=== PATIENT | female | born 1975 | race Caucasian/White ===

== ENCOUNTER 2021-03-06 14:12 | Inpatient (IN) ==
[2021-03-06] MEDS ORDERED: SODIUM CHLORIDE 0.9% 1000ML 1,000 ML IV ONE (14:26)
[2021-03-06] MEDS ORDERED: methylPREDNISolone 125 MG/2 ML VIAL IV STA (14:26)
[2021-03-06] MEDS ORDERED: ALBUT/IPRATROP 3MG/0.5MG NEB 3 ML VIAL NEB STA ×3 (14:26→17:56)
--- NOTE | 2021-03-06 14:29 | Emergency Department Note ---
History of Present Illness General Chief Complaint: Respiratory Problems Stated Complaint: ASTHMA ATTACK Time Seen by Provider: 03/06/21 14:19 History of Present Illness Provider Complaint: shortness of breath and "asthma attack" Onset (ago): day(s) (3) Severity: moderate Consistency/Duration: + progressively worsening Maximum Pain Intensity: 5 Relieved By: + nothing Exacerbated By: + coughing Context: no recent illness, no choking/aspiration, no medication noncompliance, no smoke/fume exposure or no CO exposure Known history of: asthma Associated symptoms: + chest pain, + pain with inspiration, + cough and + wheezing; no fever, no hemoptysis, no nausea/vomiting, no abdominal pain or no chest congestion HPI Narrative: Patient states she has been taking her albuterol nebulizer every 2 hours and has been on 80 mg prednisone for last 3 days but does not help. Patient denies any history of intubation or ICU admission. Home Medications Medication Instructions Recorded Confirmed Type multivitamin 1 tab PO QAM 08/25/18 03/06/21 History omeprazole 40 mg capsule,delayed 40 mg PO QAM 08/25/18 03/06/21 History release dextromethorphan HBr 5 mg/5 mL 10 mg PO Q6H PRN 08/30/19 03/06/21 History oral syrup (Vicks DayQuil Cough) dextromethorphan polistirex 30 10 ml PO Q12H 08/30/19 03/06/21 History mg/5 mL oral susp ext.release 12hr (Delsym 12 hour) albuterol sulfate 0.63 mg/3 mL 0.63 mg INHALATION QID PRN #75 ml 04/26/20 03/06/21 Rx solution for nebulization albuterol sulfate 90 mcg/actuation 2 puff INHALATION Q6H PRN #18 g 04/26/20 03/06/21 Rx aerosol inhaler budesonide-formoterol HFA 160 2 inh INH Q12H #10.2 g 04/26/20 03/06/21 Rx mcg-4.5 mcg/actuation aerosol inhaler (Symbicort) famotidine 20 mg tablet 20 mg PO DAILY 04/26/20 03/06/21 History ipratropium 0.5 mg-albuterol 3 mg 3 ml INH QID PRN #90 ml 04/26/20 03/06/21 Rx (2.5 mg base)/3 mL nebulization soln valacyclovir 500 mg tablet 500 mg PO Q12 PRN tab 04/26/20 03/06/21 History montelukast 10 mg tablet 10 mg PO DAILY #30 tab 09/08/20 03/06/21 Rx (Singulair) ipratropium bromide 21 mcg (0.03 2 spray INTNAS DAILY ml 09/21/20 03/06/21 History %) nasal spray Lactobacil.acidophilus-Bifido.animalis 1 cap PO DAILY 03/06/21 03/06/21 History 5 billion cell sprinkle capsule (Probiotic) Theroplus 1 cap PO DAILY 03/06/21 03/06/21 History acetaminophen 325 mg capsule 650 mg PO Q6H PRN 03/06/21 03/06/21 History (Tylenol) amino acids (Amino Acid) 3 cap PO DAILY 03/06/21 03/06/21 History amoxicillin 875 mg-potassium 1 tab PO Q12 03/06/21 03/06/21 History clavulanate 125 mg tablet bupropion HCl 150 mg 24 hr tablet, 150 mg PO DAILY 03/06/21 03/06/21 History extended release cetirizine 10 mg tablet 10 mg PO DAILY 03/06/21 03/06/21 History cholecalciferol (vitamin D3) 50 50 mcg PO DAILY 03/06/21 03/06/21 History mcg (2,000 unit) tablet (Vitamin D3) guaifenesin 200 mg tablet 200 mg PO Q4H PRN 03/06/21 03/06/21 History ibuprofen 600 mg tablet 600 mg PO Q6H PRN 03/06/21 03/06/21 History prednisone 10 mg tablet See Rx Instructions PO DAILY #20 03/06/21 03/06/21 Rx tab Allergies Allergy/AdvReac Type Severity Reaction Status Date / Time alprazolam [From Xanax] AdvReac Intermediate Hallucinati Verified 03/06/21 15:57 ons oxycodone [From Percocet] AdvReac Intermediate Hallucinati Verified 03/06/21 15:57 ons Past Med/Surg History Medical History Abnormal uterine bleeding The R/Bof surgery were discussed with the Patient to include, but not limited to bleeding/transfusion, infection, wound breakdown/poor healing, damage to organs in abd/pelvis with possible need for further surgical repair, need for abdominal incision to complete the procedure, blood clot, PE, [place], and stroke. Additionally, risks/benefits of ovarian preservation were discussed to include 1/70 lifetime risk of ovarian cancer and 5-10% risk for need of future surgery for ovarian pathology. Patient understands these risks and consents previously signed for surgery. She desires ovarian preservation at this time. GERD (gastroesophageal reflux disease) History of COVID-19 Malignant hyperthermia Family history - Great Uncle Moderate persistent asthma Nonallergic rhinitis Surgical History History of colonoscopy History of dilatation and curettage WITH UTERINE THERMAL ABLATION History of esophagogastroduodenoscopy (EGD) [place] teeth extracted Family History Father Family history of diabetes mellitus Grandmother No problems noted. Grandfather No problems noted. Grandfather (Maternal) Family history of diabetes mellitus Grandfather (Paternal) Family history of diabetes mellitus Grandmother (Paternal) Family history of diabetes mellitus Grandmother (Maternal) Family history of diabetes mellitus Aunt Family history of diabetes mellitus Uncle Family history of diabetes mellitus Social History Smoking Status: Never smoker Second Hand Exposure: No; Hx Alcohol Use: Yes Hx Substance Use: No Preferred Language: Libyan Communication Ability: Effective Inspection And Testing Supervisor Required: No Beliefs That Will Affect Care: None Current Living Situation: Spouse Current Living Situation Comment: AND FATHER IN LAW Feels Safe at Home: Yes Assistive Devices: Glasses Review of Systems A total of 10 systems reviewed and were otherwise negative Physical Exam Vital Signs: Vital Signs - 24 hr 03/06/21 14:12 03/06/21 14:26 03/06/21 14:41 Temperature 35.7 C L Temperature Source Temporal Artery Sc an Pulse Rate 115 H Pulse Rate [Apical ] 124 H Pulse Rate [Right Finger] 112 H Pulse Rhythm Regular Pulse Rhythm [Apic al] Pulse Strength Normal Respiratory Rate 22 20 16 Respiratory Effort / Characteristics Non-Labored Non-Labored Sponta neous Respiratory Depth Normal Respiratory Patter n Regular Blood Pressure 156/90 H Blood Pressure [Ri ght Arm] 154/96 H Blood Pressure Christen n 112 Blood Pressure Christen n [Right Arm] 115 Blood Pressure Pos ition Sitting Pulse Oximetry 99 100 100 Oxygen Delivery Me thod Room Air Room Air Room Air Sepsis Recent Feve r Within 48 Hours No Sepsis New/Unexpla ined Change in Men megan Status N/A Sepsis Action Take n by Nursing No Action Required 03/06/21 16:12 03/06/21 17:30 03/06/21 18:00 Temperature Temperature Source Pulse Rate Pulse Rate [Apical ] 93 H 95 H Pulse Rate [Right Finger] 96 H Pulse Rhythm Pulse Rhythm [Apic al] Regular Pulse Strength Respiratory Rate 16 18 16 Respiratory Effort / Characteristics Non-Labored Spontaneous Non-Labored Respiratory Depth Normal Normal Respiratory Patter n Blood Pressure Blood Pressure [Ri ght Arm] 142/87 H 142/87 H Blood Pressure Christen n Blood Pressure Christen n [Right Arm] 105 105 Blood Pressure Pos ition Pulse Oximetry 99 100 100 Oxygen Delivery Me thod Room Air Room Air Room Air Sepsis Recent Feve r Within 48 Hours Sepsis New/Unexpla ined Change in Men megan Status Sepsis Action Take n by Nursing 03/06/21 18:08 Temperature Temperature Source Pulse Rate Pulse Rate [Apical ] Pulse Rate [Right Finger] 97 H Pulse Rhythm Pulse Rhythm [Apic al] Pulse Strength Respiratory Rate 19 Respiratory Effort / Characteristics Spontaneous Respiratory Depth Respiratory Patter n Blood Pressure Blood Pressure [Ri ght Arm] Blood Pressure Christen n Blood Pressure Christen n [Right Arm] Blood Pressure Pos ition Pulse Oximetry 99 Oxygen Delivery Me thod Room Air Sepsis Recent Feve r Within 48 Hours Sepsis New/Unexpla ined Change in Men megan Status Sepsis Action Take n by Nursing Physical Exam: Physical Exam GENERAL: She is oriented to person, place, and time. She appears well-developed and well-nourished. She does not appear distressed. HENT: Exam performed. -Head: Normocephalic and atraumatic. -Right Ear: External ear normal. No mastoid tenderness. -Left Ear: External ear normal. No mastoid tenderness. -Mouth/Throat: The oropharynx is clear and moist. No trismus in the jaw. No dental abscesses or uvula swelling. No oropharyngeal exudate or tonsillar abscesses. EYES: Conjunctivae and EOM are normal. Pupils are equal, round, and reactive to light. Right eye exhibits no discharge. Left eye exhibits no discharge. No scleral icterus. NECK: Normal range of motion. Neck supple. No JVD present. No spinous process tenderness present. No carotid bruit present. No rigidity. No tracheal deviation and normal range of motion present. No Brudzinski's sign and no Kernig's sign noted. CV: Tachycardic rate, regular rhythm, normal heart sounds and intact distal pulses. There is no peripheral edema. Palpable radial pulses bue. PULM/CHEST: Effort normal and breath sounds normal. No respiratory distress. No stridor. She has no wheezes. She has no rales. -Chest Wall: She exhibits no tenderness. ABD: The abdomen is soft. Bowel sounds are normal. She has no distension. No mass is present. There is no tenderness. There is no rebound, no guarding, no Pena's sign and no tenderness at McBurney's point. Rovsig negative MUSC/SKEL: Normal range of motion. There is no peripheral edema, tenderness or deformity. LYMPH: No cervical adenopathy. NEURO: She is alert and oriented to person, place, and time. She has normal strength. No cranial nerve deficit or sensory deficit. Coordination and gait normal. GCS eye subscore is 4. GCS verbal subscore is 5. GCS motor subscore is 6. Cerebellar tests wnl. SKIN: Skin is warm and dry. She is not diaphoretic. PSYCH: She has a normal mood and affect. Behavior is normal. Judgment and thought content normal. Course Course 1419: The patient was evaluated in room B6. A complete history and physical exam was performed Cardiac monitoring: An order was placed for continuous cardiac monitoring. The monitor shows a rate of 115 with sinus tachycardia rhythm 1715: Nursing called and states patient is requesting another DuoNeb. The DuoNeb ordered. 1800: Vital signs stable. Labs and imaging within normal limits with the ex ception of potassium 3.0, potassium replaced in the emergency department. D- dimer and troponin negative.. On reassessment the patient is wheezing bilaterally diffusely. Patient will be given another DuoNeb treatment and [facility] Administered Medications Discontinued Medications Albuterol (Albut/Ipratrop 3mg/0.5mg Neb 3 Ml Vial) 3 ml NEB NOW STA Stop: 03/06/21 14:27 Last Admin: 03/06/21 14:40 Dose: 3 ml Documented by: [id number] Albuterol (Albut/Ipratrop 3mg/0.5mg Neb 3 Ml Vial) 3 ml NEB NOW STA Stop: 03/06/21 17:22 Last Admin: 03/06/21 17:29 Dose: 3 ml Documented by: [id number] Albuterol (Albut/Ipratrop 3mg/0.5mg Neb 3 Ml Vial) 3 ml NEB NOW STA Stop: 03/06/21 17:57 Last Admin: 03/06/21 18:07 Dose: 3 ml Documented by: [id number] Sodium Chloride (Nss 1000ml) 1,000 mls @ 999 mls/hr IV .Q1H1M ONE Stop: 03/06/21 15:26 Last Infusion: 03/06/21 16:30 Dose: 0 mls/hr Documented by: [id number] Admin: 03/06/21 14:36 Dose: 999 mls/hr Documented by: [id number] Methylprednisolone (Methylprednisolone 125 Mg/2 Ml Vial) 125 mg IV NOW STA Stop: 03/06/21 14:27 Last Admin: 03/06/21 14:37 Dose: 125 mg Documented by: [id number] Potassium Chloride (Potassium Chloride 10 Meq Tabcr) 40 meq PO NOW STA Stop: 03/06/21 15:45 Last Admin: 03/06/21 16:10 Dose: 40 meq Documented by: [id number] Medical Decision Making Laboratory Data Result diagrams: 03/06/21 14:54 03/06/21 14:54 Lab Results 03/06/21 03/06/21 03/06/21 Range/Units 14:54 14:54 14:54 WBC 10.17 (4.8-10.8) K/uL RBC 4.11 L (4.2-5.4) M/uL Hgb 12.3 (12.0-16.0) g/dL Hct 36.1 L (37-47) % MCV 87.8 (80-100) fL MCH 29.9 (25-34) pg MCHC 34.1 (32-36) g/dL RDW Std Deviation 46.8 H (36.4-46.3) fL RDW Coeff of Karena 14.5 (11.5-14.5) % Plt Count 338 (130-400) K/uL MPV 9.8 (7.4-10.4) fL Immature Gran % (Auto) 0.3 % Neut % (Auto) 91.6 % Lymph % (Auto) 6.7 % [place] % (Auto) 1.2 % Eos % (Auto) 0.1 % Baso % (Auto) 0.1 % Neut # (Auto) 9.32 H (1.4-6.5) K/uL Lymph # (Auto) 0.68 L (1.2-3.4) K/uL [place] # (Auto) 0.12 (0.11-0.59) K/uL Eos # (Auto) 0.01 (0-0.5) K/uL Baso # (Auto) 0.01 (0-0.2) K/uL Immature Gran # (Auto) 0.03 H (0.00-0.02) K/uL PT 10.3 (9.0-12.0) Seconds INR 1.0 (0.9-1.1) APTT 22.5 (21.0-31.0) Seconds PTT Ratio 0.9 D-Dimer (0-500) ug/L FEU VBG pH (7.36-7.41) VBG pCO2 (38-50) mmHg VBG pO2 mmHg VBG HCO3 mmol/L VBG O2 Saturation % VBG Base Excess mEq/L Barometric Pressure mm/Hg Sodium (136-145) mmol/L Potassium (3.5-5.1) mmol/L Chloride (98-107) mmol/L Carbon Dioxide (21-32) mmol/L Anion Gap (3-11) BUN (7-18) mg/dl Creatinine (0.6-1.2) mg/dl Est Cr Clr Drug Dosing ml/min Est GFR ( Amer) ml/min Est GFR (Non-Af Amer) ml/min BUN/Creatinine Ratio (10-20) Glucose (70-99) mg/dl Calcium (8.5-10.1) mg/dl Magnesium (1.8-2.4) mg/dl Troponin I (0-0.045) ng/ml COVID-19 Eval Order SARS-CoV-2 (PCR) (Negative) SARS-CoV-2 IgG & IgM Ab Positive A (Negative) 03/06/21 03/06/21 03/06/21 Range/Units 14:54 14:54 14:54 WBC (4.8-10.8) K/uL RBC (4.2-5.4) M/uL Hgb (12.0-16.0) g/dL Hct (37-47) % MCV (80-100) fL MCH (25-34) pg MCHC (32-36) g/dL RDW Std Deviation (36.4-46.3) fL RDW Coeff of Karena (11.5-14.5) % Plt Count (130-400) K/uL MPV (7.4-10.4) fL Immature Gran % (Auto) % Neut % (Auto) % Lymph % (Auto) % [place] % (Auto) % Eos % (Auto) % Baso % (Auto) % Neut # (Auto) (1.4-6.5) K/uL Lymph # (Auto) (1.2-3.4) K/uL [place] # (Auto) (0.11-0.59) K/uL Eos # (Auto) (0-0.5) K/uL Baso # (Auto) (0-0.2) K/uL Immature Gran # (Auto) (0.00-0.02) K/uL PT (9.0-12.0) Seconds INR (0.9-1.1) APTT (21.0-31.0) Seconds PTT Ratio D-Dimer 490 (0-500) ug/L FEU VBG pH 7.47 H (7.36-7.41) VBG pCO2 28 L (38-50) mmHg VBG pO2 37 mmHg VBG HCO3 20 mmol/L VBG O2 Saturation 72.7 % VBG Base Excess -2.5 mEq/L Barometric Pressure 732.0 mm/Hg Sodium 141 (136-145) mmol/L Potassium 3.0 L (3.5-5.1) mmol/L Chloride 110 H (98-107) mmol/L Carbon Dioxide 20 L (21-32) mmol/L Anion Gap 11.0 (3-11) BUN 14 (7-18) mg/dl Creatinine 0.94 (0.6-1.2) mg/dl Est Cr Clr Drug Dosing 88.8 ml/min Est GFR ( Amer) 83.7 ml/min Est GFR (Non-Af Amer) 72.2 ml/min BUN/Creatinine Ratio 15.0 (10-20) Glucose 163 H (70-99) mg/dl Calcium 8.6 (8.5-10.1) mg/dl Magnesium (1.8-2.4) mg/dl Troponin I < 0.015 (0-0.045) ng/ml COVID-19 Eval Order SARS-CoV-2 (PCR) (Negative) SARS-CoV-2 IgG & IgM Ab (Negative) 03/06/21 03/06/21 03/06/21 Range/Units 14:54 15:15 15:15 WBC (4.8-10.8) K/uL RBC (4.2-5.4) M/uL Hgb (12.0-16.0) g/dL Hct (37-47) % MCV (80-100) fL MCH (25-34) pg MCHC (32-36) g/dL RDW Std Deviation (36.4-46.3) fL RDW Coeff of Karena (11.5-14.5) % Plt Count (130-400) K/uL MPV (7.4-10.4) fL Immature Gran % (Auto) % Neut % (Auto) % Lymph % (Auto) % [place] % (Auto) % Eos % (Auto) % Baso % (Auto) % Neut # (Auto) (1.4-6.5) K/uL Lymph # (Auto) (1.2-3.4) K/uL [place] # (Auto) (0.11-0.59) K/uL Eos # (Auto) (0-0.5) K/uL Baso # (Auto) (0-0.2) K/uL Immature Gran # (Auto) (0.00-0.02) K/uL PT (9.0-12.0) Seconds INR (0.9-1.1) APTT (21.0-31.0) Seconds PTT Ratio D-Dimer (0-500) ug/L FEU VBG pH (7.36-7.41) VBG pCO2 (38-50) mmHg VBG pO2 mmHg VBG HCO3 mmol/L VBG O2 Saturation % VBG Base Excess mEq/L Barometric Pressure mm/Hg Sodium (136-145) mmol/L Potassium (3.5-5.1) mmol/L Chloride (98-107) mmol/L Carbon Dioxide (21-32) mmol/L Anion Gap (3-11) BUN (7-18) mg/dl Creatinine (0.6-1.2) mg/dl Est Cr Clr Drug Dosing ml/min Est GFR ( Amer) ml/min Est GFR (Non-Af Amer) ml/min BUN/Creatinine Ratio (10-20) Glucose (70-99) mg/dl Calcium (8.5-10.1) mg/dl Magnesium 2.2 (1.8-2.4) mg/dl Troponin I (0-0.045) ng/ml COVID-19 Eval Order Covid19 at [facility] SARS-CoV-2 (PCR) NEGATIVE (Negative) SARS-CoV-2 IgG & IgM Ab (Negative) Imaging Data Radiologist's Impression: Chest X-Ray 03/06/21 14:26 XR chest 1V portable CLINICAL HISTORY: Shortness of breath. COMPARISON STUDY: No previous studies for comparison. FINDINGS: Lung volumes are normal. Lungs are clear. There is no pneumothorax or pleural effusion. Cardiac size is normal. Mediastinal contours are normal. There is no evidence for pulmonary edema. Slight interstitial prominence is likely within normal limits. IMPRESSION: No acute cardiopulmonary findings. ACT 112: Negative or not required by law. Electronically signed by: James Norton M.D. 03/06/2021 2:50 PM ECG Data Interpretation: Sinus tachycardia with a rate of 112. DE QRS and QTc intervals within normal limits. No ST elevation or ST depression. [facility] Narrative 1419: The patient was evaluated in room B6. A complete history and physical exam was performed Cardiac monitoring: An order was placed for continuous cardiac monitoring. The monitor shows a rate of 115 with sinus tachycardia rhythm 1715: Nursing called and states patient is requesting another DuoNeb. The DuoNeb ordered. 1800: Vital signs stable. Labs and imaging within normal limits with the exception of potassium 3.0, potassium replaced in the emergency department. D- dimer and troponin negative.. On reassessment the patient is wheezing bilaterally diffusely. Patient will be given another DuoNeb treatment and [facility] Impression & Plan Asthma exacerbation Discharge Plan Visit Data Chief Complaint: Respiratory Problems Stated Complaint: ASTHMA ATTACK ED Provider: Jamal Manning Discharge Problem: Asthma exacerbation Patient Disposition: Being Evaluated by Hospitalist Forms Stand Alone Forms: My [facility] Prescriptions Prescriptions: No Action montelukast [Singulair] 10 mg tablet 10 mg PO DAILY Qty: 30 RF: 5 prednisone 10 mg tablet See Rx Instructions PO DAILY Qty: 20 RF: 0 Vicks DayQuil Cough 5 mg/5 mL syrup 10 mg PO Q6H PRN (Reason: Cough) RF: 0 dextromethorphan polistirex [Delsym 12 hour] 30 mg/5 mL suspension,extended rel 12 hr 10 ml PO Q12H RF: 0 valacyclovir 500 mg tablet 500 mg PO Q12 PRN (Reason: Cold Sores) RF: 0 ipratropium bromide 0.03 % spray,non-aerosol 2 spray INTNAS DAILY RF: 0 famotidine 20 mg tablet 20 mg PO DAILY RF: 0 Symbicort 160-4.5 mcg/actuation HFA aerosol inhaler 2 inh INH Q12H Qty: 10.2 RF: 5 albuterol sulfate 90 mcg/actuation HFA aerosol inhaler 2 puff INHALATION Q6H PRN (Reason: Dyspnea) Qty: 18 RF: 5 albuterol sulfate 0.63 mg/3 mL solution for nebulization 0.63 mg INHALATION QID PRN (Reason: Dyspnea) Qty: 75 RF: 5 ipratropium-albuterol 0.5 mg-3 mg(2.5 mg base)/3 mL solution for nebulization 3 ml INH QID PRN (Reason: shortness of breath or wheezing) Qty: 90 RF: 5 omeprazole 40 mg Capsule,Delayed Release(Dr/Ec) 40 mg PO QAM RF: 0 multivitamin Tablet 1 tab PO QAM RF: 0 acetaminophen [Tylenol] 325 mg capsule 650 mg PO Q6H PRN (Reason: Fever Or Pain) RF: 0 amoxicillin-pot clavulanate 875-125 mg tablet 1 tab PO Q12 RF: 0 ibuprofen 600 mg tablet 600 mg PO Q6H PRN (Reason: Fever Or Pain) RF: 0 guaifenesin 200 mg Tablet 200 mg PO Q4H PRN (Reason: Cough) RF: 0 bupropion HCl 150 mg tablet extended release 24 hr 150 mg PO DAILY RF: 0 cholecalciferol (vitamin D3) [Vitamin D3] 50 mcg (2,000 unit) Tablet 50 mcg PO DAILY RF: 0 Probiotic 5 billion cell Capsule, Sprinkle 1 cap PO DAILY RF: 0 Amino Acid Capsule 3 cap PO DAILY RF: 0 Theroplus 1 cap PO DAILY RF: 0 cetirizine 10 mg tablet 10 mg PO DAILY RF: 0 Referrals Referrals: Ruth Chong MD [Primary Care Provider] -
--- NOTE | 2021-03-06 14:52 | XRay Report ---
XR chest 1V portable CLINICAL HISTORY: Shortness of breath. COMPARISON STUDY: No previous studies for comparison. FINDINGS: Lung volumes are normal. Lungs are clear. There is no pneumothorax or pleural effusion. Car diac size is normal. Mediastinal contours are normal. There is no evidence for pulmonary edema. Sligh t interstitial prominence is likely within normal limits. IMPRESSION: No acute cardiopulmonary findings. ACT 112: Negative or not required by law. Electronically signed by: James Norton M.D. 03/06/2021 2:50 PM
[2021-03-06 15:10] LABS: Basophils # (auto) 0.01 K/uL (0-0.2); Basophils % (auto) 0.1 %; Eosinophils # (auto) 0.01 K/uL (0-0.5); Eosinophils % (auto) 0.1 %; Hematocrit (blood only) 36.1 % (37-47); Hemoglobin 12.3 g/dL (12.0-16.0); Immature Granulocytes # (auto) 0.03 K/uL (0.00-0.02); Immature Granulocytes % (auto) 0.3 %; Lymphocytes # (auto) 0.68 K/uL (1.2-3.4); Lymphocytes % (auto) 6.7 %; Mean Corpuscular Hemoglobin 29.9 pg (25-34); Mean Corpuscular Hgb Conc 34.1 g/dL (32-36); Mean Corpuscular Volume 87.8 fL (80-100); Mean Platelet Volume 9.8 fL (7.4-10.4); Monocytes # (auto) 0.12 K/uL (0.11-0.59); Monocytes % (auto) 1.2 %; Neutrophils # (auto) 9.32 K/uL (1.4-6.5); Neutrophils % (auto) 91.6 %; Platelet Count 338 K/uL (130-400); RDW Coefficient of Variation 14.5 % (11.5-14.5); RDW Standard Deviation 46.8 fL (36.4-46.3); Red Blood Count 4.11 M/uL (4.2-5.4); White Blood Count 10.17 K/uL (4.8-10.8)
[2021-03-06 15:17] LABS: Base Excess VBG -2.5 mEq/L; Oxygen Saturation VBG 72.7 %; pH VBG 7.47 (7.36-7.41)
[2021-03-06 15:21] LABS: Partial Thromboplastin Ratio 0.9; Partial Thromboplastin Time 22.5 Seconds (21.0-31.0); Prothrombin Time 10.3 Seconds (9.0-12.0)
[2021-03-06 15:25] LABS: D Dimer 490 ug/L FEU (0-500)
[2021-03-06 15:27] LABS: Blood Urea Nitrogen 14 mg/dl (7-18); Calcium 8.6 mg/dl (8.5-10.1); Carbon Dioxide 20 mmol/L (21-32); Chloride 110 mmol/L (98-107); Creatinine Clr Calc Pharmacy 88.8 ml/min; Est GFR (African American) 83.7 ml/min; Est GFR (Non-African American) 72.2 ml/min; Glucose 163 mg/dl (70-99); Sodium 141 mmol/L (136-145)
[2021-03-06 15:31] LABS: Troponin I < 0.015 ng/ml (0-0.045)
[2021-03-06] MEDS ORDERED: POTASSIUM CHLORIDE 10 MEQ TABCR PO STA (15:44)
[2021-03-06 16:04] LABS: CoV2 Total Antibody Positive (Negative)
--- NOTE | 2021-03-06 19:18 | History & Physical Report ---
Date of Service March 06, 2021 Assessment & Plan (1) Asthma exacerbation: Plan: -admit to med/surg with telemetry -presenting from home with reports of worsening cough, shortness of breath, and wheezing x 4 days despite the use of prednisone, rescue inhaler, and nebs -likely triggered by environmental exposure -in the ED, saturating well on room air -received albuterol neb x 3, solumedrol 125mg IV; symptoms improved however still present -continue IV solumedrol 40mg IV q8h, ATC duonebs, home Symbicort -pulmonary consult, input appreciated (2) GERD (gastroesophageal reflux disease): Plan: -continue PPI and H2 murray (3) DVT prophylaxis: Plan: -SCDs History of Present Illness Chief Complaint: Cough, shortness of breath Primary Care Provider: Ruth Gonzales MD 45-year-old female with PMH moderate persistent asthma, chronic rhinitis, Raynaud's disease, GERD, and other problems listed below who presents the ED for evaluation of cough and shortness of breath. Patient reports that 4 days ago, she was outside for most the day in the high humidity at the [facility]. Reports that this typically will exacerbate her asthma. That evening, patient reports being around a campfire. The following day she reports wheezing and cough. She started to utilize her rescue inhaler and also nebulizers. She had no improvement by the following day and then started a home prednisone rescue pack with prednisone 80 mg daily. Patient reports no improvement her symptoms despite the use of prednisone, albuterol inhaler, and DuoNeb's. Patient reports her voice has been very hoarse. She reports a productive cough for some clear sputum at times. No fevers or chills. She reports chest soreness from the persistent coughing. Denies abdominal pain, nausea, vomiting, diarrhea. No lightheadedness, dizziness, diaphoresis, syncopal events. She denies urinary symptoms. In the ED, patient is saturating well on room air. She received albuterol nebulizer x 3, Solu-Medrol 125 mg IV, and IVF. Labs show K+ 3.0 patient received potassium replacement. Patient reports persistent symptoms, therefore will be admitted for further observation. Allergies Allergy/AdvReac Type Severity Reaction Status Date / Time alprazolam [From Xanax] AdvReac Intermediate Hallucinati Verified 03/06/21 15:57 ons oxycodone [From Percocet] AdvReac Intermediate Hallucinati Verified 03/06/21 15:57 ons Home Medications Medication Instructions Recorded Confirmed Type multivitamin 1 tab PO QAM 08/25/18 03/06/21 History omeprazole 40 mg capsule,delayed 40 mg PO QAM 08/25/18 03/06/21 History release dextromethorphan HBr 5 mg/5 mL 10 mg PO Q6H PRN 08/30/19 03/06/21 History oral syrup (Vicks DayQuil Cough) dextromethorphan polistirex 30 10 ml PO Q12H 08/30/19 03/06/21 History mg/5 mL oral susp ext.release 12hr (Delsym 12 hour) albuterol sulfate 0.63 mg/3 mL 0.63 mg INHALATION QID PRN #75 ml 04/26/20 03/06/21 Rx solution for nebulization albuterol sulfate 90 mcg/actuation 2 puff INHALATION Q6H PRN #18 g 04/26/20 03/06/21 Rx aerosol inhaler budesonide-formoterol HFA 160 2 inh INH Q12H #10.2 g 04/26/20 03/06/21 Rx mcg-4.5 mcg/actuation aerosol inhaler (Symbicort) famotidine 20 mg tablet 20 mg PO DAILY 04/26/20 03/06/21 History ipratropium 0.5 mg-albuterol 3 mg 3 ml INH QID PRN #90 ml 04/26/20 03/06/21 Rx (2.5 mg base)/3 mL nebulization soln valacyclovir 500 mg tablet 500 mg PO Q12 PRN tab 04/26/20 03/06/21 History montelukast 10 mg tablet 10 mg PO DAILY #30 tab 09/08/20 03/06/21 Rx (Singulair) ipratropium bromide 21 mcg (0.03 2 spray INTNAS DAILY ml 09/21/20 03/06/21 History %) nasal spray Lactobacil.acidophilus-Bifido.animalis 1 cap PO DAILY 03/06/21 03/06/21 History 5 billion cell sprinkle capsule (Probiotic) Theroplus 1 cap PO DAILY 03/06/21 03/06/21 History acetaminophen 325 mg capsule 650 mg PO Q6H PRN 03/06/21 03/06/21 History (Tylenol) amino acids (Amino Acid) 3 cap PO DAILY 03/06/21 03/06/21 History amoxicillin 875 mg-potassium 1 tab PO Q12 03/06/21 03/06/21 History clavulanate 125 mg tablet bupropion HCl 150 mg 24 hr tablet, 150 mg PO DAILY 03/06/21 03/06/21 History extended release cetirizine 10 mg tablet 10 mg PO DAILY 03/06/21 03/06/21 History cholecalciferol (vitamin D3) 50 50 mcg PO DAILY 03/06/21 03/06/21 History mcg (2,000 unit) tablet (Vitamin D3) guaifenesin 200 mg tablet 200 mg PO Q4H PRN 03/06/21 03/06/21 History ibuprofen 600 mg tablet 600 mg PO Q6H PRN 03/06/21 03/06/21 History prednisone 10 mg tablet See Rx Instructions PO DAILY #20 03/06/21 03/06/21 Rx tab Past Med/Surg History Medical History Abnormal uterine bleeding The R/Bof surgery were discussed with the Patient to include, but not limited to bleeding/transfusion, infection, wound breakdown/poor healing, damage to organs in abd/pelvis with possible need for further surgical repair, need for abdominal incision to complete the procedure, blood clot, PE, DC, and stroke. Additionally, risks/benefits of ovarian preservation were discussed to include 1/70 lifetime risk of ovarian cancer and 5-10% risk for need of future surgery for ovarian pathology. Patient understands these risks and consents previously signed for surgery. She desires ovarian preservation at this time. GERD (gastroesophageal reflux disease) History of COVID-19 Malignant hyperthermia Family history - Great Uncle Moderate persistent asthma Nonallergic rhinitis Surgical History History of colonoscopy History of dilatation and curettage WITH UTERINE THERMAL ABLATION History of esophagogastroduodenoscopy (EGD) [place] teeth extracted Family History Father Family history of diabetes mellitus Grandmother No problems noted. Grandfather No problems noted. 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 Required: No Beliefs That Will Affect Care: None Current Living Situation: Spouse Current Living Situation Comment: AND FATHER IN LAW Feels Safe at Home: Yes Assistive Devices: None Review of Systems Review of Systems: ROS per HPI, all other systems reviewed and negative Physical Exam Constitutional: WD/WN, vitals as above Eyes: PERRL, conjunctivae normal, anicteric sclerae ENMT: external ear and nose normal, oropharynx normal hoarse voice Respiratory: normal respiratory effort, lungs clear to auscultation + cough dry, non productive Cardiovascular: Rate/Rhythm: regular rhythm and + tachycardic Vessels: normal peripheral pulses Extremities: no edema Gastrointestinal (Abdomen): normal bowel sounds, soft, nontender, no hepatosplenomegaly Musculoskeletal: no cyanosis or clubbing, extremities motor strength 5/5 Skin: no rashes, warm and dry Neurologic: PERRL, EOMI, accommodation nl, no face palsy, no dysarthria Psychiatric: A+Ox3, euthymic affect Results & Data Results & Data ([facility]) Vital Signs (Past 12 Hours) Vital Signs Temp Pulse Pulse Pulse Resp BP BP 03/06/21 18:08 97 H 19 03/06/21 18:00 95 H 16 142/87 H 03/06/21 17:30 96 H 18 03/06/21 16:12 93 H 16 142/87 H 03/06/21 14:41 112 H 16 03/06/21 14:26 124 H 20 154/96 H 03/06/21 14:12 35.7 C L 115 H 22 156/90 H Pulse Ox 03/06/21 18:08 99 03/06/21 18:00 100 03/06/21 17:30 100 03/06/21 16:12 99 03/06/21 14:41 100 03/06/21 14:26 100 03/06/21 14:12 99 Laboratory Results Short CBC 03/06/21 Range/Units 14:54 WBC 10.17 (4.8-10.8) K/uL Hgb 12.3 (12.0-16.0) g/dL Hct 36.1 L (37-47) % Plt Count 338 (130-400) K/uL BMP 03/06/21 14:54 Sodium 141 Potassium 3.0 L Chloride 110 H Carbon Dioxide 20 L BUN 14 Creatinine 0.94 Glucose 163 H Calcium 8.6 Cardiac Enzymes 03/06/21 Range/Units 14:54 Troponin I < 0.015 (0-0.045) ng/ml Diagnostic Findings Chest X-Ray 03/06/21 14:26 XR chest 1V portable CLINICAL HISTORY: Shortness of breath. COMPARISON STUDY: No previous studies for comparison. FINDINGS: Lung volumes are normal. Lungs are clear. There is no pneumothorax or pleural effusion. Cardiac size is normal. Mediastinal contours are normal. There is no evidence for pulmonary edema. Slight interstitial prominence is likely within normal limits. IMPRESSION: No acute cardiopulmonary findings. ACT 112: Negative or not required by law. Electronically signed by: James Norton M.D. 03/06/2021 2:50 PM Code Status & VTE Plan VTE Prophylaxis Plan VTE Prophylaxis will be ordered: Yes Supervising Physician Co-Signing Physician Notes pt seen and examined , care co-ordinated with Annabel MODI 45 yo F admitted with severe asthma exacerbation tried rescue kit at home , with no improvement no fever or chills follows with [facility] pulmonlogy Cxray no infiltrate EKG no ishcemic change physical exam : gen ; no apparent distress , shortness of breath improved after neb tx /Iv steroids HEENT ; NAD LUNGS :diminished breath sound , no rales, scattered wheeze heart : regular s1 /s2 , no lower ext edema ext : no lower ext edema admitted with severe asthma exacerbation /status asthematicus -ordered for scheduled nebs , Iv solumedrol pulm consult -as pt follows with pulm in clinic reports of tremor and insomnia -while taking prednisone will be on Iv solu medrol ordered PRN ativan HS neb tx changed to xoponex to limit tremors and tachycardia Inés Powers MD
[2021-03-06] MEDS ORDERED: XOPENEX/ATROVENT 1.25mg/0.5MG NEB COMBO NEB SCH (21:54)
[2021-03-06] MEDS ORDERED: POTASSIUM CHLORIDE CRTAB 20 MEQ TABCR PO ONE (22:30)
[2021-03-06] MEDS: LEVALBUTEROL 1.25MG/0.5ML NEB INH SCH (23:02)
[2021-03-06] MEDS: IPRATROPIUM BROMIDE NEB SOLN 0.02% 2.5 ML VIAL INH SCH (23:02)
[2021-03-06] MEDS: methylPREDNISolone 40 MG in SYRINGE 0 ML IV SCH (23:14)
[2021-03-06] MEDS: LORazepam 0.5 MG TAB PO PRN (23:14)
[2021-03-06] MEDS: SODIUM CHLORIDE 0.9% 1000ML 1,000 ML IV SCH (23:14)
[2021-03-07] MEDS: LEVALBUTEROL 1.25MG/0.5ML NEB INH SCH ×7 (03:20→22:15)
[2021-03-07] MEDS: IPRATROPIUM BROMIDE NEB SOLN 0.02% 2.5 ML VIAL INH SCH ×7 (03:20→22:15)
[2021-03-07] MEDS: ACETAMINOPHEN 325 MG TAB PO PRN ×3 (03:54→21:35)
[2021-03-07] MEDS: methylPREDNISolone 40 MG in SYRINGE 0 ML IV SCH ×3 (06:09→21:36)
[2021-03-07 08:13] LABS: Hematocrit (blood only) 36.1 % (37-47); Hemoglobin 12.3 g/dL (12.0-16.0); Mean Corpuscular Hemoglobin 30.3 pg (25-34); Mean Corpuscular Hgb Conc 34.1 g/dL (32-36); Mean Corpuscular Volume 88.9 fL (80-100); Mean Platelet Volume 9.8 fL (7.4-10.4); Platelet Count 366 K/uL (130-400); RDW Coefficient of Variation 14.7 % (11.5-14.5); Red Blood Count 4.06 M/uL (4.2-5.4); White Blood Count 10.01 K/uL (4.8-10.8)
[2021-03-07] MEDS ORDERED: FLUTICASONE/VILANTEROL 100/25MCG 14 PUFFS/INHALER INH SCH (09:00)
[2021-03-07 09:03] LABS: BUN Creatinine Ratio 15.7 (10-20); Calcium 8.7 mg/dl (8.5-10.1); Creatinine Clr Calc Pharmacy 117.2 ml/min; Est GFR (African American) 117.6 ml/min; Est GFR (Non-African American) 101.4 ml/min; Potassium 3.9 mmol/L (3.5-5.1)
[2021-03-07] MEDS: PANTOprazole 40 MG TAB PO SCH (09:33)
[2021-03-07] MEDS: IPRATROPIUM BROMIDE NASAL SPRAY 0.06% 15ML NAE SCH (09:35)
[2021-03-07] MEDS: buPROPion XL 150 MG TABCR PO SCH (09:36)
[2021-03-07] MEDS: MONTELUKAST SODIUM 10 MG TABLET PO SCH (09:36)
[2021-03-07] MEDS: CHOLECALCIFEROL 1,000 UNITS 25 MCG TAB PO SCH (09:36)
[2021-03-07] MEDS: FAMOTIDINE 20 MG TAB PO SCH (09:37)
[2021-03-07] MEDS: CETIRIZINE HCL 10 MG TABLET PO SCH (09:37)
[2021-03-07] MEDS: SODIUM CHLORIDE 0.9% 1000ML 1,000 ML IV SCH (10:50)
--- NOTE | 2021-03-07 17:25 | Hospitalist Progress Note ---
Date of Service March 07, 2021 Assessment & Plan (1) Asthma exacerbation: Plan: Acute asthma exacerbation -CXR: No acute cardiopulmonary findings. Continue bronchodilators, Solu-Medrol, home inhalers Saturating well on room air Pulmonary consulted Hyperglycemia Due to steroids Monitor (2) GERD (gastroesophageal reflux disease): Plan: continue PPI and H2 murray (3) DVT prophylaxis: Plan: SCDs Admission and Anticipated Discharge Date Admission Date: March 06, 2021 Subjective Patient is seen and examined at bedside States having normal expectorant cough, chest tightness, wheezing and dyspnea Symptoms improved since admission No new complaints Saturating well on room air Review of Systems Review of Systems: All systems reviewed & are unremarkable except as noted in Subjective Physical Exam Physical Exam: Physical Exam: Vitals signs as noted above General Appearance:Moderately built and nourished, no apparent distress Head: normocephalic, Atraumatic Eyes: normal inspection, EOMI Neck: supple, Trachea midline Respiratory/Chest: Normal breath sounds, CTA, No accessory muscle use Cardiovascular: S1, S2, No murmur Abdomen/GI:Soft, Non tender, Bowel sounds present Extremities/Musculoskeletal:normal inspection, no edema Neurologic/Psych:AAOX3, grossly no focal neurological deficits Skin: normal color, warm Results & Data Results & Data ([facility]) Vital Signs (Past 12 Hours) Vital Signs Temp Pulse Pulse Resp BP BP Pulse Ox 03/07/21 15:49 36.6 C 100 H 20 116/63 97 03/07/21 15:13 85 16 98 03/07/21 12:05 36.9 C 95 H 20 117/72 94 03/07/21 11:45 76 16 97 03/07/21 07:08 75 20 99 03/07/21 06:07 36.5 C 101 H 18 140/85 100 Laboratory Results Short CBC 03/07/21 Range/Units 07:41 WBC 10.01 (4.8-10.8) K/uL Hgb 12.3 (12.0-16.0) g/dL Hct 36.1 L (37-47) % Plt Count 366 (130-400) K/uL BMP 03/07/21 07:41 Sodium 137 Potassium 3.9 D Chloride 110 H Carbon Dioxide 21 BUN 11 Creatinine 0.71 Glucose 139 H Calcium 8.7 (1) Asthma exacerbation Asthma persistence: persistent Asthma severity: moderate Qualified Code(s): J45.41 - Moderate persistent asthma with (acute) exacerbation
--- NOTE | 2021-03-07 17:57 | Pulmonary Consultation ---
Date of Consultation March 07, 2021 Assessment & Plan (1) Asthma exacerbation: Chest x-ray 03/06/2021 personally reviewed: Hyperinflated film, bilateral costophrenic and cardiophrenic angles are clean, air between the cardiac silhouette and the left diaphragm, increased cardiac silhouette. --Severe persistent asthma Failed outpatient prednisone therapy Patient did not tolerate Breo as an outpatient Continue with steroids, inhaled bronchodilators c/w montelukast --Asthmatic bronchitis Add guaifenesin with flutter valve. --Anxiety/PTSD Patient is on medications for it It could be also playing a role on top of above in patient's SOB. Plan: Patient is already on high-dose steroids inhaled at home. I would like to add Spiriva 2.5 MCG 2 puffs on a daily basis to that at discharge Add Incruse while in the hospital. Ok to use Home symbicort in place of breo in the hospital Patient has been on very high-dose steroids for significant long time I will order RAST panel and Ig E level. She has been on steroids whenever she is in hospital so her eosinophils have b een on the lower side. Patient will likely benefit from Biologics based on her symptoms as well as Rast and IgE level Needs PFTs as an outpatient. Please note the above document was generated using voice recognition software. It may contain grammatical, syntax or spelling errors.Any formal questions or concerns about the content, text or information contained within the body of t his dictation should be directly addressed to the provider for clarification. Asthma persistence: persistent Asthma severity: moderate Qualified Code(s): J45.41 - Moderate persistent asthma with (acute) exacerbation (2) Asthmatic bronchitis: (3) Hoarseness of voice: History of Present Illness Attending Physician: Juancarlos Morfin MD History of Present Illness 45-year-old female past medical history of persistent asthma, Gerd, anxiety was admitted to the hospital because of worsening shortness of breath Patient is on prednisone 80 mg at home still complaining of chest tightness and inability to bring up the phlegm resulting to admission to the hospital Patient has been following with Jeff OQUENDO, as an outpatient patient was diagnosed with COVID-19 back in June 2020 Previous records from the outpatient pulmonary reviewed. Patient says she is compliant with Symbicort 160-4.5 MCG, 2 puffs twice daily. Since but since last 4 days she has been complaining of chest tightness she usually gets hoarseness of voice which is followed by chest tightness and unable to bring up the phlegm and wheezing Patient has a feeling of phlegm but she is not able to bring it up. Patient denies any fever or chills. No dysuria, no diarrhea She has been in the past up to 120 mg of prednisone. Her first episode of asthma exacerbation was back in 2019 and as per the patient she was on steroids for approximately 4-6 months. 120 mg of prednisone a day is a very high dose for any asthmatic. I am unsure whether her asthma or something else was being treated with such high dose of prednisone Patient does have history of Raynaud's phenomenon. 10/27/2018: Pulmonary function testing obtained and demonstrates spirometry that is normal with repeat study following bronchodilator without significant change in function. Flow volume loops are normal. Lung volumes are normal. Diffusion is normal at 91 percent. Social history: Non-smoker. No illicit drug use. 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 No birds or poultry nearby. Allergies Allergy/AdvReac Type Severity Reaction Status Date / Time alprazolam [From Xanax] AdvReac Intermediate Hallucinati Verified 03/06/21 15:57 ons oxycodone [From Percocet] AdvReac Intermediate Hallucinati Verified 03/06/21 15:57 ons Home Medications Medication Instructions Recorded Confirmed Type multivitamin 1 tab PO QAM 08/25/18 03/06/21 History omeprazole 40 mg capsule,delayed 40 mg PO QAM 08/25/18 03/06/21 History release dextromethorphan HBr 5 mg/5 mL 10 mg PO Q6H PRN 08/30/19 03/06/21 History oral syrup (Vicks DayQuil Cough) dextromethorphan polistirex 30 10 ml PO Q12H 08/30/19 03/06/21 History mg/5 mL oral susp ext.release 12hr (Delsym 12 hour) albuterol sulfate 0.63 mg/3 mL 0.63 mg INHALATION QID PRN #75 ml 04/26/20 03/06/21 Rx solution for nebulization albuterol sulfate 90 mcg/actuation 2 puff INHALATION Q6H PRN #18 g 04/26/20 03/06/21 Rx aerosol inhaler budesonide-formoterol HFA 160 2 inh INH Q12H #10.2 g 04/26/20 03/06/21 Rx mcg-4.5 mcg/actuation aerosol inhaler (Symbicort) famotidine 20 mg tablet 20 mg PO DAILY 04/26/20 03/06/21 History ipratropium 0.5 mg-albuterol 3 mg 3 ml INH QID PRN #90 ml 04/26/20 03/06/21 Rx (2.5 mg base)/3 mL nebulization soln valacyclovir 500 mg tablet 500 mg PO Q12 PRN tab 04/26/20 03/06/21 History montelukast 10 mg tablet 10 mg PO DAILY #30 tab 09/08/20 03/06/21 Rx (Singulair) ipratropium bromide 21 mcg (0.03 2 spray INTNAS DAILY ml 09/21/20 03/06/21 History %) nasal spray Lactobacil.acidophilus-Bifido.animalis 1 cap PO DAILY 03/06/21 03/06/21 History 5 billion cell sprinkle capsule (Probiotic) Theroplus 1 cap PO DAILY 03/06/21 03/06/21 History acetaminophen 325 mg capsule 650 mg PO Q6H PRN 03/06/21 03/06/21 History (Tylenol) amino acids (Amino Acid) 3 cap PO DAILY 03/06/21 03/06/21 History amoxicillin 875 mg-potassium 1 tab PO Q12 03/06/21 03/06/21 History clavulanate 125 mg tablet bupropion HCl 150 mg 24 hr tablet, 150 mg PO DAILY 03/06/21 03/06/21 History extended release cetirizine 10 mg tablet 10 mg PO DAILY 03/06/21 03/06/21 History cholecalciferol (vitamin D3) 50 50 mcg PO DAILY 03/06/21 03/06/21 History mcg (2,000 unit) tablet (Vitamin D3) guaifenesin 200 mg tablet 200 mg PO Q4H PRN 03/06/21 03/06/21 History ibuprofen 600 mg tablet 600 mg PO Q6H PRN 03/06/21 03/06/21 History prednisone 10 mg tablet See Rx Instructions PO DAILY #20 03/06/21 03/06/21 Rx tab Patient History Medical History Abnormal uterine bleeding The R/Bof surgery were discussed with the Patient to include, but not limited to bleeding/transfusion, infection, wound breakdown/poor healing, damage to organs in abd/pelvis with possible need for further surgical repair, need for abdominal incision to complete the procedure, blood clot, PE, NE, and stroke. Additionally, risks/benefits of ovarian preservation were discussed to include 1/70 lifetime risk of ovarian cancer and 5-10% risk for need of future surgery for ovarian pathology. Patient understands these risks and consents previously signed for surgery. She desires ovarian preservation at this time. GERD (gastroesophageal reflux disease) History of COVID-19 Malignant hyperthermia Family history - Great Uncle Moderate persistent asthma Nonallergic rhinitis Surgical History History of colonoscopy History of dilatation and curettage WITH UTERINE THERMAL ABLATION History of esophagogastroduodenoscopy (EGD) [place] teeth extracted Family History Father Family history of diabetes mellitus Grandmother No problems noted. Grandfather No problems noted. Grandfather (Maternal) Family history of diabetes mellitus Grandfather (Paternal) Family history of diabetes mellitus Grandmother (Paternal) Family history of diabetes mellitus Grandmother (Maternal) Family history of diabetes mellitus Aunt Family history of diabetes mellitus Uncle Family history of diabetes mellitus Social History Smoking Status: Never smoker Second Hand Exposure: No; Hx Alcohol Use: Yes Hx Substance Use: No Preferred Language: Mosotho Communication Ability: Effective Case Mgr Required: No Beliefs That Will Affect Care: None Current Living Situation: Spouse Current Living Situation Comment: AND FATHER IN LAW Feels Safe at Home: Yes Assistive Devices: None Review of Systems Review of Systems: All systems reviewed & are unremarkable except as noted in HPI & below Physical Exam Physical Exam: Constitutional: No acute distress HEENT: EOMI, PERRLA, hoarseness of voice appreciated Respiratory system: Good air entry bilaterally, no wheeze, no rhonchi, no crackles CVS: S1-S2 positive, no murmurs or gallops Abdomen: Soft, nontender, nondistended, positive bowel sounds x4 Extremities: +2 pulses bilaterally radialis/ dorsalis pedis, no cyanosis, no edema Neuro: Awake alert oriented x3 Psych: Normal mood and affect G/U: No Wheat Skin: no rashes, warm and dry Lymphatic: no cervical or axillary lymphadenopathy Results & Data Results & Data ([facility]) Vital Signs (Past 12 Hours) Vital Signs Temp Pulse Pulse Resp BP BP Pulse Ox 03/07/21 15:49 36.6 C 100 H 20 116/63 97 03/07/21 15:13 85 16 98 03/07/21 12:05 36.9 C 95 H 20 117/72 94 03/07/21 11:45 76 16 97 03/07/21 07:08 75 20 99 03/07/21 06:07 36.5 C 101 H 18 140/85 100 03/07/21 07:41 03/07/21 07:41 PG Care Time/CCT Total # of Minutes Spent Total Time Spent with Patient: Total time spent is greater than 50% in coordination of care (as documented) at patient's floor/unit and/or counseling patient: Coding Level of Care Code 15172 Inpt Consult Level 4 Diagnoses Asthma exacerbation J45.41 Asthma persistence: persistent Asthma severity: moderate Asthmatic bronchitis J45.909 Hoarseness of voice R49.0
[2021-03-07] MEDS ORDERED: COUGH DROP (SUGAR FREE) LOZ 24 LOZ/1 BOX BUCCAL STA (21:27)
[2021-03-07] MEDS: LORazepam 0.5 MG TAB PO PRN (21:48)
[2021-03-07] MEDS: guaiFENesin 600 MG TABCR PO SCH (21:48)
[2021-03-07] MEDS: UMECLIDINIUM BROMIDE 62.5MCG/BLISTER 7 PUFFS/INHALER INH SCH (21:52)
[2021-03-07] MEDS ORDERED: IBUPROFEN 200 MG TAB PO PRN (21:57)
--- NOTE | 2021-03-07 22:13 | CT Scan Report ---
CT chest diagnostic wo con CLINICAL HISTORY: r/o infiltrate/ Edema COMPARISON STUDY: No previous studies for comparison. CT DOSE: 432.30 mGy.cm TECHNIQUE: CT of the thorax was performed from the thoracic inlet to the lung bases. Images are revi ewed in the axial, sagittal, and coronal planes. IV contrast was not administered for this examinatio n. A dose lowering technique was utilized adhering to the principles of ALARA. FINDINGS: There is no axillary, supra clavicle or internal mammary lymphadenopathy seen. Mediastinal lymph nodes are not enlarged. Thyroid: Imaged portions of the thyroid gland are normal in appearance. Thoracic aorta: The thoracic aorta is normal in course and caliber, noting standard 3 vessel arch vic vasu. Heart: The heart is normal in size and configuration, without pericardial effusion. Lungs and pleural spaces: Tracheobronchial tree is patent. No infiltrates or consolidative lesions are seen. No pleural effusion is demonstrated. Minimal atelectasis is seen at bilateral bases. Upper abdomen: Partially visualized upper abdominal viscera is within normal limits. Skeletal structures: Minimal degenerative changes of the thoracic spine. No definite aggressive osseo us lesions are seen. IMPRESSION: Minimal atelectasis at bilateral bases. ACT 112: Negative or not required by law. The above report was generated using voice recognition software. It may contain grammatical, syntax o r spelling errors. Electronically signed by: Bhargavi Sykes DO 03/07/2021 10:12 PM
[2021-03-08] MEDS: IPRATROPIUM BROMIDE NEB SOLN 0.02% 2.5 ML VIAL INH SCH ×6 (03:10→23:14)
[2021-03-08] MEDS: LEVALBUTEROL 1.25MG/0.5ML NEB INH SCH ×6 (03:10→23:14)
[2021-03-08] MEDS: ACETAMINOPHEN 325 MG TAB PO PRN ×2 (03:28→22:08)
[2021-03-08] MEDS ORDERED: ALBUT/IPRATROP 3MG/0.5MG NEB 3 ML VIAL NEB STA (05:31)
[2021-03-08] MEDS ORDERED: ALBUT/IPRATROP 3MG/0.5MG NEB 3 ML VIAL ONE (05:39)
[2021-03-08] MEDS: methylPREDNISolone 40 MG in SYRINGE 0 ML IV SCH ×2 (05:55→13:31)
[2021-03-08 06:12] LABS: Hematocrit (blood only) 36.2 % (37-47); Hemoglobin 12.1 g/dL (12.0-16.0); Mean Corpuscular Hemoglobin 29.7 pg (25-34); Mean Corpuscular Hgb Conc 33.4 g/dL (32-36); Mean Corpuscular Volume 88.7 fL (80-100); Mean Platelet Volume 9.5 fL (7.4-10.4); Platelet Count 333 K/uL (130-400); RDW Coefficient of Variation 14.9 % (11.5-14.5); RDW Standard Deviation 48.5 fL (36.4-46.3); Red Blood Count 4.08 M/uL (4.2-5.4); White Blood Count 11.52 K/uL (4.8-10.8)
[2021-03-08 07:05] LABS: Calcium 8.9 mg/dl (8.5-10.1); Creatinine Clr Calc Pharmacy 89.9 ml/min; Est GFR (African American) 84.8 ml/min; Est GFR (Non-African American) 73.2 ml/min; Magnesium 2.5 mg/dl (1.8-2.4); Potassium 3.7 mmol/L (3.5-5.1)
--- NOTE | 2021-03-08 08:15 | Electrocardiogram Report ---
Test Reason : Blood Pressure : / mmHG Vent. Rate : 112 BPM Atrial Rate : 112 BPM P-R Int : 142 ms QRS Dur : 094 ms QT Int : 346 ms P-R-T Axes : 055 014 029 degrees QTc Int : 472 ms Sinus tachycardia Left atrial enlargement Low voltage QRS Incomplete right bundle branch block Diffuse Minor Nonspecific ST abnormality Abnormal ECG No previous ECGs available Confirmed by Sekou Mendez ([id number]) on 03/08/2021 8:15:19 AM Referred By: REFERRED SELF Confirmed By:Sekou Mendez
[2021-03-08] MEDS: CHOLECALCIFEROL 1,000 UNITS 25 MCG TAB PO SCH (09:34)
[2021-03-08] MEDS: MONTELUKAST SODIUM 10 MG TABLET PO SCH (09:34)
[2021-03-08] MEDS: IPRATROPIUM BROMIDE NASAL SPRAY 0.06% 15ML NAE SCH (09:34)
[2021-03-08] MEDS: FAMOTIDINE 20 MG TAB PO SCH (09:35)
[2021-03-08] MEDS: PANTOprazole 40 MG TAB PO SCH (09:35)
[2021-03-08] MEDS: buPROPion XL 150 MG TABCR PO SCH (09:35)
[2021-03-08] MEDS: CETIRIZINE HCL 10 MG TABLET PO SCH (09:35)
[2021-03-08] MEDS: guaiFENesin 600 MG TABCR PO SCH (09:40)
[2021-03-08] MEDS: guaiFENesin/DEXTROM SYRUP 100MG/10MG 5ML UDC PO SCH ×3 (10:01→22:07)
[2021-03-08] MEDS: UMECLIDINIUM BROMIDE 62.5MCG/BLISTER 7 PUFFS/INHALER INH SCH (10:50)
--- NOTE | 2021-03-08 13:11 | Gastrointestinal Consultation ---
Date of Consultation March 08, 2021 Assessment & Plan (1) Dysphagia: 45 y/o female admitted with asthma exacerbation, GI asked to evaluate for dysphagia. This seems to be of a chronic nature and is accompanied by intermittent odynophagia, frequent GERD symptoms despite use of daily PPI and H 2RA. On exam, abd soft. Labs, imaging reviewed. - Recommendations would include following a soft/dysphagia type diet and being sure to avoid trigger foods; remain upright after eating - Follow anti-reflux lifestyle, sleep propped up on a wedge pillow - Continue daily PPI + famotidine. Consider switching to alternative PPI (not Protonix) such as Nexium - Can use Gaviscon/Tums for breakthrough symptoms - Recommend EGD to evaluate for potential causes for her symptoms (esophagitis, stenosis, stricture, etc; would also r/o fungal involvement given frequent steroid use). This can be arranged on an outpt basis. - If hoarseness doesn't improve, would recommend OP ENT eval +/- laryngoscopy - Will defer mgmt of her co-morbidities to her primary team Thank you for allowing us to participate in the care of this patient. Please call with any acute changes, questions or concerns. Please see addendum below with additional recommendation from my supervising physician. Supervising Physician Co-Signing Physician Notes I have personally seen and examined the patient with Jessica Steele PA-C. Her note reflects my exam and findings. I agree with her impression and plan. Agree with out patient EGD when pulmonary status is stabilized. Stephon Pena M.D. History of Present Illness Reason for Consultation: Dysphagia Requesting Physician: Dr. Morfin Attending Physician: Juancarlos Morfin MD History of Present Illness This is a 45-year-old female with PMH moderate persistent asthma, chronic rhinitis, Raynaud's disease, GERD, and others admitted through the ER after presenting yesterday with severe asthma exacerbation with cough, wheezing, dyspnea. On arrival, labs, CT chest and CXR with no significant findings. GI asked to evaluate for dysphagia - she had trouble swallowing fish for lunch. She states she's had chronic intermittent solid food dysphagia for at least the last several years; she doesn't get symptoms with soft foods but typical food triggers include meats, breads. She has occasional pain with swallowing, jorge alberto when she swallows really cold water. She has occasional regurgitation, and fairly frequent GERD symptoms several times a week. In addition she's noticed throat discomfort and hoarseness within the last week with her asthma symptoms. She requires steroids at times for her asthma. She notes a history of gastritis, remote h/o EGD when she was in her 20's and has been on a daily PPI (Prilosec) since then. She also takes daily famotidine. She tried Protonix but it wasn't helpful. She doens't smoke. She has a fam hx esophageal hernias and several family members have required esophageal dilation. Bowels typically move regularly. No abd pain, change in BMs, no melena, hematochezia, nausea, vomiting, hematemesis, fever, chills, weight loss. Allergies Allergy/AdvReac Type Severity Reaction Status Date / Time alprazolam [From Xanax] AdvReac Intermediate Hallucinati Verified 03/06/21 15:57 ons oxycodone [From Percocet] AdvReac Intermediate Hallucinati Verified 03/06/21 15:57 ons Home Medications Medication Instructions Recorded Confirmed Type multivitamin 1 tab PO QAM 08/25/18 03/06/21 History omeprazole 40 mg capsule,delayed 40 mg PO QAM 08/25/18 03/06/21 History release dextromethorphan HBr 5 mg/5 mL 10 mg PO Q6H PRN 08/30/19 03/06/21 History oral syrup (Vicks DayQuil Cough) dextromethorphan polistirex 30 10 ml PO Q12H 08/30/19 03/06/21 History mg/5 mL oral susp ext.release 12hr (Delsym 12 hour) albuterol sulfate 0.63 mg/3 mL 0.63 mg INHALATION QID PRN #75 ml 04/26/20 03/06/21 Rx solution for nebulization albuterol sulfate 90 mcg/actuation 2 puff INHALATION Q6H PRN #18 g 04/26/20 03/06/21 Rx aerosol inhaler budesonide-formoterol HFA 160 2 inh INH Q12H #10.2 g 04/26/20 03/06/21 Rx mcg-4.5 mcg/actuation aerosol inhaler (Symbicort) famotidine 20 mg tablet 20 mg PO DAILY 04/26/20 03/06/21 History ipratropium 0.5 mg-albuterol 3 mg 3 ml INH QID PRN #90 ml 04/26/20 03/06/21 Rx (2.5 mg base)/3 mL nebulization soln valacyclovir 500 mg tablet 500 mg PO Q12 PRN tab 04/26/20 03/06/21 History montelukast 10 mg tablet 10 mg PO DAILY #30 tab 09/08/20 03/06/21 Rx (Singulair) ipratropium bromide 21 mcg (0.03 2 spray INTNAS DAILY ml 09/21/20 03/06/21 History %) nasal spray Lactobacil.acidophilus-Bifido.animalis 1 cap PO DAILY 03/06/21 03/06/21 History 5 billion cell sprinkle capsule (Probiotic) Theroplus 1 cap PO DAILY 03/06/21 03/06/21 History acetaminophen 325 mg capsule 650 mg PO Q6H PRN 03/06/21 03/06/21 History (Tylenol) amino acids (Amino Acid) 3 cap PO DAILY 03/06/21 03/06/21 History amoxicillin 875 mg-potassium 1 tab PO Q12 03/06/21 03/06/21 History clavulanate 125 mg tablet bupropion HCl 150 mg 24 hr tablet, 150 mg PO DAILY 03/06/21 03/06/21 History extended release cetirizine 10 mg tablet 10 mg PO DAILY 03/06/21 03/06/21 History cholecalciferol (vitamin D3) 50 50 mcg PO DAILY 03/06/21 03/06/21 History mcg (2,000 unit) tablet (Vitamin D3) guaifenesin 200 mg tablet 200 mg PO Q4H PRN 03/06/21 03/06/21 History ibuprofen 600 mg tablet 600 mg PO Q6H PRN 03/06/21 03/06/21 History prednisone 10 mg tablet See Rx Instructions PO DAILY #20 03/06/21 03/06/21 Rx tab Patient History Medical History Abnormal uterine bleeding The R/Bof surgery were discussed with the Patient to include, but not limited to bleeding/transfusion, infection, wound breakdown/poor healing, damage to organs in abd/pelvis with possible need for further surgical repair, need for abdominal incision to complete the procedure, blood clot, PE, OR, and stroke. Additionally, risks/benefits of ovarian preservation were discussed to include 1/70 lifetime risk of ovarian cancer and 5-10% risk for need of future surgery for ovarian pathology. Patient understands these risks and consents previously signed for surgery. She desires ovarian preservation at this time. GERD (gastroesophageal reflux disease) History of COVID-19 Malignant hyperthermia Family history - Great Uncle Moderate persistent asthma Nonallergic rhinitis Surgical History History of colonoscopy History of dilatation and curettage WITH UTERINE THERMAL ABLATION History of esophagogastroduodenoscopy (EGD) [place] teeth extracted Family History Father Family history of diabetes mellitus Grandmother No problems noted. Grandfather No problems noted. Grandfather (Maternal) Family history of diabetes mellitus Grandfather (Paternal) Family history of diabetes mellitus Grandmother (Paternal) Family history of diabetes mellitus Grandmother (Maternal) Family history of diabetes mellitus Aunt Family history of diabetes mellitus Uncle Family history of diabetes mellitus Social History Smoking Status: Never smoker Second Hand Exposure: No; Hx Alcohol Use: Yes Hx Substance Use: No Preferred Language: Egyptian Communication Ability: Effective Overhead Foreman Required: No Beliefs That Will Affect Care: None Current Living Situation: Spouse Current Living Situation Comment: AND FATHER IN LAW Feels Safe at Home: Yes Assistive Devices: None Review of Systems Review of Systems: All systems reviewed & are unremarkable except as noted in Subjective Physical Exam Constitutional: WD/WN, vitals as above Eyes: anicteric sclera Respiratory: normal respiratory effort, lungs clear to auscultation Cardiovascular: Rate/Rhythm: regular rate and regular rhythm Gastrointestinal (Abdomen): BS x 4 quadrants, abd soft, nontender, nondistended Skin: no rashes, warm and dry Psychiatric: A+Ox3, euthymic affect Results & Data ([facility]) Vital Signs (Past 12 Hours) Vital Signs Temp Pulse Pulse Pulse Resp BP Pulse Ox 03/08/21 11:22 36.6 C 84 20 122/74 98 03/08/21 10:59 95 H 16 97 03/08/21 07:23 77 16 97 03/08/21 07:00 76 03/08/21 06:46 36.5 C 86 20 137/84 97 03/08/21 05:42 84 100 03/08/21 03:41 36.5 C 80 20 107/66 98 03/08/21 03:11 80 20 100 Laboratory Results 03/08/21 03/08/21 03/08/21 Range/Units 05:56 05:56 05:56 WBC 11.52 H (4.8-10.8) K/uL RBC 4.08 L (4.2-5.4) M/uL Hgb 12.1 (12.0-16.0) g/dL Hct 36.2 L (37-47) % MCV 88.7 (80-100) fL MCH 29.7 (25-34) pg MCHC 33.4 (32-36) g/dL RDW Std Deviation 48.5 H (36.4-46.3) fL RDW Coeff of Karena 14.9 H (11.5-14.5) % Plt Count 333 (130-400) K/uL MPV 9.5 (7.4-10.4) fL Sodium 138 (136-145) mmol/L Potassium 3.7 (3.5-5.1) mmol/L Chloride 109 H (98-107) mmol/L Carbon Dioxide 21 (21-32) mmol/L Anion Gap 8.0 (3-11) BUN 14 (7-18) mg/dl Creatinine 0.93 (0.6-1.2) mg/dl Est Cr Clr Drug Dosing 89.9 ml/min Est GFR ( Amer) 84.8 ml/min Est GFR (Non-Af Amer) 73.2 ml/min BUN/Creatinine Ratio 15.0 (10-20) Glucose 129 H (70-99) mg/dl Calcium 8.9 (8.5-10.1) mg/dl Magnesium Cancelled 2.5 H (1.8-2.4) mg/dl A. tenuis Allergen IgE A. tenuis ASM Class A.fumigatus Allerg IgE A. fumigatus ASM Class C. herbarum Allergn IgE C. herbarum ASM Class D. farinae Allrgen IgE D. farinae ASM Class D. pteronyssinus IgE D. pteronyssinus ASM Cl P. notatum Allerg IgE P, notatum ASM Class Walker IgE Ab Walker ASM Class Waldo IgE Ab Waldo ASM Class Elm Tree Allergen IgE Elm Tree ASM Class Maple ([place]ec[place]) IgE Maple Tree ASM Class [place] Tree IgE Ab [place] ASM Class Galva Tree IgE Ab Galva ASM Class [place] Tree Allergen [place] Tree ASM Class [place] Tree IgE Ab [place] ASM Class [place] ASM Clss [place] Ag IgE Ad [place] IgE Ab [place] ASM Class [place] Grass IgE Ab Berm[place] Grass ASM Class Freddy Grass IgE Ab Freddy Grass ASM Class Common Ragweed IgE Ab Comm Ragweed ASM Class Mugwort ASM Class Mugwort Allergen Rough Pigweed Allrg IgE Rough Pigweed ASM Class Sheep [place] IgE Ab Sheep [place] ASM Class Cat Dander Allergen Cat Dander ASM Class Dog Dander IgE Allergen Dog Dander ASM Class Mouse Urine IgE Ab Mouse Ur Prot ASM Class Cockroach Allergen IgE Cochroach ASM Class IgE 03/08/21 Range/Units 05:56 WBC (4.8-10.8) K/uL RBC (4.2-5.4) M/uL Hgb (12.0-16.0) g/dL Hct (37-47) % MCV (80-100) fL MCH (25-34) pg MCHC (32-36) g/dL RDW Std Deviation (36.4-46.3) fL RDW Coeff of Karena (11.5-14.5) % Plt Count (130-400) K/uL MPV (7.4-10.4) fL Sodium (136-145) mmol/L Potassium (3.5-5.1) mmol/L Chloride (98-107) mmol/L Carbon Dioxide (21-32) mmol/L Anion Gap (3-11) BUN (7-18) mg/dl Creatinine (0.6-1.2) mg/dl Est Cr Clr Drug Dosing ml/min Est GFR ( Amer) ml/min Est GFR (Non-Af Amer) ml/min BUN/Creatinine Ratio (10-20) Glucose (70-99) mg/dl Calcium (8.5-10.1) mg/dl Magnesium (1.8-2.4) mg/dl A. tenuis Allergen IgE Pending A. tenuis ASM Class Pending A.fumigatus Allerg IgE Pending A. fumigatus ASM Class Pending C. herbarum Allergn IgE Pending C. herbarum ASM Class Pending D. farinae Allrgen IgE Pending D. farinae ASM Class Pending D. pteronyssinus IgE Pending D. pteronyssinus ASM Cl Pending P. notatum Allerg IgE Pending P, notatum ASM Class Pending Walker IgE Ab Pending Walker ASM Class Pending Waldo IgE Ab Pending Waldo ASM Class Pending Elm Tree Allergen IgE Pending Elm Tree ASM Class Pending Maple ([place]) IgE Pending Maple Tree ASM Class Pending [place] Tree IgE Ab Pending [place] ASM Class Pending Galva Tree IgE Ab Pending Galva ASM Class Pending [place] Tree Allergen Pending Townsend Tree ASM Class Pending [place] Tree IgE Ab Pending [place] ASM Class Pending [place] ASM Clss Pending White [place] Ag IgE Ad Pending S[place]wa IgE Ab Pending S[place] ASM Class Pending Bermuda Grass IgE Ab Pending Bermuda Grass ASM Class Pending Freddy Grass IgE Ab Pending Freddy Grass ASM Class Pending Common Ragweed IgE Ab Pending Comm Ragweed ASM Class Pending Mugwort ASM Class Pending Mugwort Allergen Pending Rough Pigweed Allrg IgE Pending Rough Pigweed ASM Class Pending Sheep [place] IgE Ab Pending Sheep [place] ASM Class Pending Cat Dander Allergen Pending Cat Dander ASM Class Pending Dog Dander IgE Allergen Pending Dog Dander ASM Class Pending Mouse Urine IgE Ab Pending Mouse Ur Prot ASM Class Pending Cockroach Allergen IgE Pending Cochroach ASM Class Pending IgE Pending Diagnostic Findings CT chest: There is no axillary, supra clavicle or internal mammary lymphadenopathy seen. Mediastinal lymph nodes are not enlarged. Thyroid: Imaged portions of the thyroid gland are normal in appearance. Thoracic aorta: The thoracic aorta is normal in course and caliber, noting standard 3 vessel arch anatomy. Heart: The heart is normal in size and configuration, without pericardial effusion. Lungs and pleural spaces: Tracheobronchial tree is patent. No infiltrates or consolidative lesions are seen. No pleural effusion is demonstrated. Minimal atelectasis is seen at bilateral bases. Upper abdomen: Partially visualized upper abdominal viscera is within normal limits. Skeletal structures: Minimal degenerative changes of the thoracic spine. No definite aggressive osseous lesions are seen. IMPRESSION: Minimal atelectasis at bilateral bases. CXR: FINDINGS: Lung volumes are normal. Lungs are clear. There is no pneumothorax or pleural effusion. Cardiac size is normal. Mediastinal contours are normal. There is no evidence for pulmonary edema. Slight interstitial prominence is likely within normal limits. IMPRESSION: No acute cardiopulmonary findings.
[2021-03-08] MEDS: CHLORASEPTIC 1.4% SOLN 180 ML BTL MT PRN (13:19)
--- NOTE | 2021-03-08 16:41 | Pulmonology Progress Note ---
Date of Service March 08, 2021 Assessment & Plan (1) Asthma exacerbation: Plan: Chest x-ray 03/06/2021 personally reviewed: Hyperinflated film, bilateral costophrenic and cardiophrenic angles are clean, air between the cardiac silhouette and the left diaphragm, increased cardiac silhouette. CT chest 03/07/2021 personally reviewed: No infiltrate. Minimal dependent a telectasis No mediastinal adenopathy --Severe persistent asthma Failed outpatient prednisone therapy Patient did not tolerate Breo as an outpatient Continue with steroids, inhaled bronchodilators c/w montelukast Follow-up Rast panel as well as IgE --Asthmatic bronchitis Add guaifenesin with flutter valve. --Anxiety/PTSD Patient is on medications for it Patient does complain of inability to take deep breaths Has episodic closing of the throat And anxiety can be a precipitating factor I do think vocal cord issues as well as anxiety is playing a major role Plan: I would like to add Spiriva 2.5 MCG 2 puffs on a daily basis to that at discharge. Okay to use Incruse along with Symbicort while in the hospital We will give Mucinex with DM [id number]. Patient will benefit from an ENT referral as an outpatient to look at the vocal cords Speech therapy management will also be beneficial again will be done as an outpatient After getting more history from the patient I do think that she needs to have an ENT as well as an outpatient speech therapy eval before thinking of Biologics. Can transition to p.o. prednisone as of tomorrow. Needs PFTs as an outpatient. Please note the above document was generated using voice recognition software. It may contain grammatical, syntax or spelling errors.Any formal questions or concerns about the content, text or information contained within the body of this dictation should be directly addressed to the provider for clarification. Asthma persistence: persistent Asthma severity: moderate Qualified Code(s): J45.41 - Moderate persistent asthma with (acute) exacerbation (2) Asthmatic bronchitis: (3) Hoarseness of voice: (4) Anxiety: Admission and Anticipated Discharge Date Admission Date: March 06, 2021 Subjective Patient seen and examined at bedside. No acute distress, no symptoms overnight. Patient states that early in the morning she had that feeling that she is not able to catch air and she had a choking sensation She denies any wheezing. Does complain of chest tightness. No nausea or vomiting. Has been eating well. Review of Systems Review of Systems: All systems reviewed & are unremarkable except as noted in Subjective Physical Exam Physical Exam: Constitutional: No acute distress HEENT: EOMI, PERRLA, hoarseness of voice appreciated Respiratory system: Good air entry bilaterally, no wheeze, no rhonchi, no crackles CVS: S1-S2 positive, no murmurs or gallops Abdomen: Soft, nontender, nondistended, positive bowel sounds x4 Extremities: +2 pulses bilaterally radialis/ dorsalis pedis, no cyanosis, no edema Neuro: Awake alert oriented x3 Psych: Normal mood and affect G/U: No Wheat Skin: no rashes, warm and dry Lymphatic: no cervical or axillary lymphadenopathy Results & Data Results & Data ([facility]) Vital Signs (Past 12 Hours) Vital Signs Temp Pulse Pulse Pulse Resp BP Pulse Ox 03/08/21 15:30 97 H 16 95 03/08/21 15:12 36.6 C 75 20 114/74 98 03/08/21 14:28 86 03/08/21 11:22 36.6 C 84 20 122/74 98 03/08/21 10:59 95 H 16 97 03/08/21 07:23 77 16 97 03/08/21 07:00 76 03/08/21 06:46 36.5 C 86 20 137/84 97 03/08/21 05:42 84 100 03/08/21 05:56 03/08/21 05:56 PG Care Time/CCT Total # of Minutes Spent Total Time Spent with Patient: Total time spent is greater than 50% in coordination of care (as documented) at patient's floor/unit and/or counseling patient: Coding Level of Care Code 26294 Subseq Hosp Care Lvl 3 Diagnoses Asthma exacerbation J45.41 Asthma persistence: persistent Asthma severity: moderate Asthmatic bronchitis J45.909 Hoarseness of voice R49.0 Anxiety F41.9
--- NOTE | 2021-03-08 17:09 | Hospitalist Progress Note ---
Date of Service March 08, 2021 Assessment & Plan (1) Asthma exacerbation: Plan: Acute asthma exacerbation -CXR: No acute cardiopulmonary findings. Continue bronchodilators, Solu-Medrol, home inhalers Saturating well on room air Appreciate Pulmonary Input Needs PFTs, ENT eval as outpatient Plan to discharge on Spiriva Continue Mucinex, flutter valve Plan to transition to p.o. prednisone tomorrow Hyperglycemia Due to steroids Monitor Dysphagia History of GERD Soft dysphagia diet Appreciate GI input Plan for EGD as outpatient (2) GERD (gastroesophageal reflux disease): Plan: continue PPI and H2 murray (3) DVT prophylaxis: Plan: SCDs Admission and Anticipated Discharge Date Admission Date: March 06, 2021 Subjective Patient is seen and examined at bedside Reports feeling tired States having significant coughing spell overnight Also reports dysphagia No chest pain, Dyspnea today Review of Systems Review of Systems: All systems reviewed & are unremarkable except as noted in Subjective Physical Exam Physical Exam: Physical Exam: Vitals signs as noted above General Appearance:Moderately built and nourished, no apparent distress Head: normocephalic, Atraumatic Eyes: normal inspection, EOMI Neck: supple, Trachea midline Respiratory/Chest: Normal breath sounds, CTA, No accessory muscle use Cardiovascular: S1, S2, No murmur Abdomen/GI:Soft, Non tender, Bowel sounds present Extremities/Musculoskeletal:normal inspection, no edema Neurologic/Psych:AAOX3, grossly no focal neurological deficits Skin: normal color, warm Results & Data Results & Data ([facility]) Vital Signs (Past 12 Hours) Vital Signs Temp Pulse Pulse Pulse Resp BP Pulse Ox 03/08/21 15:30 97 H 16 95 03/08/21 15:12 36.6 C 75 20 114/74 98 03/08/21 14:28 86 03/08/21 11:22 36.6 C 84 20 122/74 98 03/08/21 10:59 95 H 16 97 03/08/21 07:23 77 16 97 03/08/21 07:00 76 03/08/21 06:46 36.5 C 86 20 137/84 97 03/08/21 05:42 84 100 Laboratory Results Short CBC 03/08/21 Range/Units 05:56 WBC 11.52 H (4.8-10.8) K/uL Hgb 12.1 (12.0-16.0) g/dL Hct 36.2 L (37-47) % Plt Count 333 (130-400) K/uL BMP 03/08/21 05:56 Sodium 138 Potassium 3.7 Chloride 109 H Carbon Dioxide 21 BUN 14 Creatinine 0.93 Glucose 129 H Calcium 8.9 (1) Asthma exacerbation Asthma persistence: persistent Asthma severity: moderate Qualified Code(s): J45.41 - Moderate persistent asthma with (acute) exacerbation
[2021-03-08] MEDS: LORazepam 0.5 MG TAB PO PRN (22:08)
[2021-03-09] MEDS: guaiFENesin/DEXTROM SYRUP 100MG/10MG 5ML UDC PO SCH ×3 (03:10→15:25)
[2021-03-09] MEDS: LEVALBUTEROL 1.25MG/0.5ML NEB INH SCH ×5 (03:20→16:14)
[2021-03-09] MEDS: IPRATROPIUM BROMIDE NEB SOLN 0.02% 2.5 ML VIAL INH SCH ×5 (03:20→16:14)
[2021-03-09 06:33] LABS: BUN Creatinine Ratio 23.4 (10-20); Est GFR (African American) 113.7 ml/min; Est GFR (Non-African American) 98.1 ml/min; Potassium 3.5 mmol/L (3.5-5.1)
--- NOTE | 2021-03-09 07:38 | Pulmonology Progress Note ---
Date of Service March 09, 2021 Assessment & Plan (1) Asthma exacerbation: Plan: Chest x-ray 03/06/2021 personally reviewed: Hyperinflated film, bilateral costophrenic and cardiophrenic angles are clean, air between the cardiac silhouette and the left diaphragm, increased cardiac silhouette. CT chest 03/07/2021 personally reviewed: No infiltrate. Minimal dependent a telectasis No mediastinal adenopathy --Severe persistent asthma Failed outpatient prednisone therapy Patient did not tolerate Breo as an outpatient Continue with steroids, inhaled bronchodilators c/w montelukast Follow-up Rast panel as well as IgE --Asthmatic bronchitis Add guaifenesin with flutter valve. --Anxiety/PTSD Patient is on medications for it Patient does complain of inability to take deep breaths Has episodic closing of the throat And anxiety can be a precipitating factor I do think vocal cord issues as well as anxiety is playing a major role Plan: I would like to add Spiriva 2.5 MCG 2 puffs on a daily basis to Symbicort at discharge. Okay to use Incruse along with Symbicort while in the hospital Continue with Mucinex with DM [id number]. Add N-acetylcysteine nebulized Patient will benefit from an ENT referral as an outpatient to look at the vocal cords Speech therapy management will also be beneficial again will be done as an outpatient After getting more history from the patient I do think that she needs to have an ENT as well as an outpatient speech therapy eval before thinking of Biologics. Needs PFTs as an outpatient. Please note the above document was generated using voice recognition software. It may contain grammatical, syntax or spelling errors.Any formal questions or concerns about the content, text or information contained within the body of this dictation should be directly addressed to the provider for clarification. Asthma persistence: persistent Asthma severity: moderate Qualified Code(s): J45.41 - Moderate persistent asthma with (acute) exacerbation (2) Asthmatic bronchitis: (3) Hoarseness of voice: (4) Anxiety: Admission and Anticipated Discharge Date Admission Date: March 06, 2021 Subjective Patient seen and examined at bedside. No acute distress, noted with symptoms overnight. Patient does complain of chest tightness early in the morning. She was coughing with coarse cough is not bringing up any phlegm Denies any chest pain, shortness of breath is improved. No headache, no dizziness, no nausea vomiting Good appetite Review of Systems Review of Systems: All systems reviewed & are unremarkable except as noted in Subjective Physical Exam Physical Exam: Constitutional: No acute distress HEENT: EOMI, PERRLA, hoarseness of voice appreciated Respiratory system: Good air entry bilaterally, no wheeze, no rhonchi, no crackl es CVS: S1-S2 positive, no murmurs or gallops Abdomen: Soft, nontender, nondistended, positive bowel sounds x4 Extremities: +2 pulses bilaterally radialis/ dorsalis pedis, no cyanosis, no edema Neuro: Awake alert oriented x3 Psych: Normal mood and affect G/U: No Wheat Skin: no rashes, warm and dry Lymphatic: no cervical or axillary lymphadenopathy Results & Data Results & Data ([facility]) Vital Signs (Past 12 Hours) Vital Signs Temp Pulse Pulse Resp BP Pulse Ox 03/09/21 07:21 59 L 03/09/21 04:54 36.3 C L 65 18 118/59 L 95 03/09/21 03:33 76 20 96 03/08/21 23:15 83 18 96 03/08/21 22:50 36.5 C 69 18 150/84 H 97 03/08/21 22:34 71 03/08/21 05:56 03/09/21 05:47 PG Care Time/CCT Total # of Minutes Spent Total Time Spent with Patient: Total time spent is greater than 50% in co ordination of care (as documented) at patient's floor/unit and/or counseling patient: Coding Level of Care Code 36600 Subseq Hosp Care Lvl 2 Diagnoses Asthma exacerbation J45.41 Asthma persistence: persistent Asthma severity: moderate Asthmatic bronchitis J45.909 Hoarseness of voice R49.0 Anxiety F41.9
[2021-03-09] MEDS ORDERED: methylPREDNISolone 40 MG in SYRINGE 0 ML IV SCH (09:00)
[2021-03-09] MEDS: UMECLIDINIUM BROMIDE 62.5MCG/BLISTER 7 PUFFS/INHALER INH SCH (09:27)
[2021-03-09] MEDS: IPRATROPIUM BROMIDE NASAL SPRAY 0.06% 15ML NAE SCH (09:28)
[2021-03-09] MEDS: CETIRIZINE HCL 10 MG TABLET PO SCH (09:29)
[2021-03-09] MEDS: buPROPion XL 150 MG TABCR PO SCH (09:29)
[2021-03-09] MEDS: CHOLECALCIFEROL 1,000 UNITS 25 MCG TAB PO SCH (09:30)
[2021-03-09] MEDS: FAMOTIDINE 20 MG TAB PO SCH (09:30)
[2021-03-09] MEDS: PANTOprazole 40 MG TAB PO SCH (09:30)
[2021-03-09] MEDS: MONTELUKAST SODIUM 10 MG TABLET PO SCH (09:30)
[2021-03-09] MEDS: CHLORASEPTIC 1.4% SOLN 180 ML BTL MT PRN (10:55)
[2021-03-09] MEDS: ACETAMINOPHEN 325 MG TAB PO PRN (10:55)
--- NOTE | 2021-03-09 14:35 | Hospitalist Progress Note ---
Date of Service March 09, 2021 Assessment & Plan (1) Asthma exacerbation: Plan: Acute asthma exacerbation -CXR: No acute cardiopulmonary findings. Continue bronchodilators, Solu-Medrol, home inhalers Saturating well on room air Appreciate Pulmonary Input Needs PFTs, ENT eval as outpatient Plan to discharge on Spiriva Continue Mucinex, flutter valve Plan to transition to Prednisone upon discharge Hyperglycemia Due to steroids Monitor Dysphagia History of GERD Soft dysphagia diet Appreciate GI input Plan for EGD as outpatient (2) GERD (gastroesophageal reflux disease): Plan: continue PPI and H2 murray (3) DVT prophylaxis: Plan: SCDs Admission and Anticipated Discharge Date Admission Date: March 06, 2021 Subjective Patient is seen and examined at bedside No new complaints Cough, sore throat better Discussed with Pulmonology today Review of Systems Review of Systems: All systems reviewed & are unremarkable except as noted in Subjective Physical Exam Physical Exam: Physical Exam: Vitals signs as noted above General Appearance:Moderately built and nourished, no apparent distress Head: normocephalic, Atraumatic Eyes: normal inspection, EOMI Neck: supple, Trachea midline Respiratory/Chest: Normal breath sounds, CTA, No accessory muscle use Cardiovascular: S1, S2, No murmur Abdomen/GI:Soft, Non tender, Bowel sounds present Extremities/Musculoskeletal:normal inspection, no edema Neurologic/Psych:AAOX3, grossly no focal neurological deficits Skin: normal color, warm Results & Data Results & Data ([facility]) Vital Signs (Past 12 Hours) Vital Signs Temp Pulse Pulse Pulse Resp BP BP 03/09/21 11:39 69 18 03/09/21 11:09 36.8 C 72 18 121/81 03/09/21 08:15 89 20 03/09/21 07:41 36.8 C 64 18 121/74 03/09/21 07:21 59 L 03/09/21 04:54 36.3 C L 65 18 118/59 L 03/09/21 03:33 76 20 Pulse Ox 03/09/21 11:39 99 03/09/21 11:09 100 03/09/21 08:15 97 03/09/21 07:41 96 03/09/21 07:21 03/09/21 04:54 95 03/09/21 03:33 96 Laboratory Results BMP 03/09/21 05:47 Sodium 139 Potassium 3.5 Chloride 109 H Carbon Dioxide 25 BUN 17 Creatinine 0.73 Glucose 93 Calcium 8.0 L (1) Asthma exacerbation Asthma persistence: persistent Asthma severity: moderate Qualified Code(s): J45.41 - Moderate persistent asthma with (acute) exacerbation
--- NOTE | 2021-03-09 14:55 | Discharge Summary ---
Date of Service March 09, 2021 Admission HPI Per Admitting Provider 45-year-old female with PMH moderate persistent asthma, chronic rhinitis, Raynaud's disease, GERD, and other problems listed below who presents the ED for evaluation of cough and shortness of breath. Patient reports that 4 days ago, she was outside for most the day in the high humidity at the [facility]. Reports that this typically will exacerbate her asthma. That evening, patient reports being around a campfire. The following day she reports wheezing and cough. She started to utilize her rescue inhaler and also nebulizers. She had no improvement by the following day and then started a home prednisone rescue pack with prednisone 80 mg daily. Patient reports no improvement her symptoms despite the use of prednisone, albuterol inhaler, and DuoNeb's. Patient reports her voice has been very hoarse. She reports a productive cough for some clear sputum at times. No fevers or chills. She reports chest soreness from the persistent coughing. Denies abdominal pain, nausea, vomiting, diarrhea. No lightheadedness, dizziness, diaphoresis, syncopal events. She denies urinary symptoms. In the ED, patient is saturating well on room air. She received albuterol nebulizer x 3, Solu-Medrol 125 mg IV, and IVF. Labs show K+ 3.0 patient received potassium replacement. Patient reports persistent symptoms, therefore will be admitted for further observation. Admission Exam Per Admitting Provider Physical Exam Constitutional: WD/WN, vitals as above Eyes: PERRL, conjunctivae normal, anicteric sclerae ENMT: external ear and nose normal, oropharynx normal hoarse voice Respiratory: normal respiratory effort, lungs clear to auscultation + cough dry, non productive Cardiovascular: Rate/Rhythm: regular rhythm and + tachycardic Vessels: normal peripheral pulses Extremities: no edema Gastrointestinal (Abdomen): normal bowel sounds, soft, nontender, no hepatosplenomegaly Musculoskeletal: no cyanosis or clubbing, extremities motor strength 5/5 Skin: no rashes, warm and dry Neurologic: PERRL, EOMI, accommodation nl, no face palsy, no dysarthria Psychiatric: A+Ox3, euthymic affect Principal Diagnosis Acute asthma exacerbation Asthmatic bronchitis Dysphagia Discharge Data Allergies Allergy/AdvReac Type Severity Reaction Status Date / Time alprazolam [From Xanax] AdvReac Intermediate Hallucinati Verified 03/06/21 15:57 ons oxycodone [From Percocet] AdvReac Intermediate Hallucinati Verified 03/06/21 15:57 ons Consultations 03/06/21 17:57 ED Decision to Admit Stat 03/06/21 21:54 Consult Pulmonology Routine 03/08/21 12:15 Consult Gastroenterology Routine Ordered Studies 03/07/21 18:39 CT chest diagnostic wo con Routine Hospital Course (1) Asthma exacerbation: Acute asthma exacerbation -CXR: No acute cardiopulmonary findings. Continue bronchodilators, Solu-Medrol, home inhalers Saturating well on room air Appreciate Pulmonary Input Needs PFTs, ENT eval as outpatient Plan to discharge on Spiriva Continue Mucinex, flutter valve Plan to transition to Prednisone upon discharge Hyperglycemia Due to steroids Monitor Dysphagia History of GERD Soft dysphagia diet Appreciate GI input Plan for EGD as outpatient (2) GERD (gastroesophageal reflux disease): continue PPI and H2 murray (3) DVT prophylaxis: SCDs Total Time Total Time Spent Total Time Spent (In Minutes): 38 minutes Discharge Plan Discharge Items Patient Disposition: Home - Self-Care Reason For Visit: ASTHMA EXACERBATION Discharge Diagnosis: Acute asthma exacerbation Asthmatic bronchitis Dysphagia Activity: Per Instructions section Non-emergency contact: Primary Care Provider, Marzipan Molder and Critical Care Registered Nurse Call non-emergency contact if: you have any medication questions, your symptoms worsen, your pain is concerning for you and you have a fever Follow-up/Referrals: Ruth Chong MD [Primary Care Provider] - (Date & Time 03/14/2021 1:40 PM Provider Ruth Gonzales MD Department Family Medicine [facility] ) Diet: Regular Addtl Attending Provider Instructions: Follow-up with your primary care physician Dr. 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 Complete the antibiotic course doxycycline 100 mg twice a day for 5 days. Prednisone taper course Start taking prednisone 40 mg daily for 3 days and then 20 mg for 4 days and stop Seek immediate medical attention if your symptoms reoccur or worsen Please take all medications as instructed on discharge list below. Please call if you have any questions or problems. You can reach a [facility] hospitalist on duty at [facility] 24 hours a day by calling [phone] Pending Studies at Discharge: Yes Studies:: IgE levels Stand-Alone Forms: My [facility], Work/School Release, Smoking Cessation Medications and DC Order Prescriptions: New doxycycline monohydrate 100 mg tablet 100 mg PO DAILY Qty: 10 RF: 0 prednisone 20 mg tablet 20 mg PO UD Qty: 10 RF: 0 Spiriva Respimat 2.5 mcg/actuation mist 2 inh inhalation DAILY Qty: 4 RF: 1 Continued montelukast [Singulair] 10 mg tablet 10 mg PO DAILY Qty: 30 RF: 5 Vicks DayQuil Cough 5 mg/5 mL syrup 10 mg PO Q6H PRN (Reason: Cough) RF: 0 dextromethorphan polistirex [Delsym 12 hour] 30 mg/5 mL suspension,extended rel 12 hr 10 ml PO Q12H RF: 0 valacyclovir 500 mg tablet 500 mg PO Q12 PRN (Reason: Cold Sores) RF: 0 famotidine 20 mg tablet 20 mg PO DAILY RF: 0 Symbicort 160-4.5 mcg/actuation HFA aerosol inhaler 2 inh INH Q12H Qty: 10.2 RF: 5 albuterol sulfate 90 mcg/actuation HFA aerosol inhaler 2 puff INHALATION Q6H PRN (Reason: Dyspnea) Qty: 18 RF: 5 albuterol sulfate 0.63 mg/3 mL solution for nebulization 0.63 mg INHALATION QID PRN (Reason: Dyspnea) Qty: 75 RF: 5 ipratropium-albuterol 0.5 mg-3 mg(2.5 mg base)/3 mL solution for nebulization 3 ml INH QID PRN (Reason: shortness of breath or wheezing) Qty: 90 RF: 5 omeprazole 40 mg Capsule,Delayed Release(Dr/Ec) 40 mg PO QAM RF: 0 multivitamin Tablet 1 tab PO QAM RF: 0 acetaminophen [Tylenol] 325 mg capsule 650 mg PO Q6H PRN (Reason: Fever Or Pain) RF: 0 ibuprofen 600 mg tablet 600 mg PO Q6H PRN (Reason: Fever Or Pain) RF: 0 guaifenesin 200 mg Tablet 200 mg PO Q4H PRN (Reason: Cough) RF: 0 bupropion HCl 150 mg tablet extended release 24 hr 150 mg PO DAILY RF: 0 cholecalciferol (vitamin D3) [Vitamin D3] 50 mcg (2,000 unit) Tablet 50 mcg PO DAILY RF: 0 Probiotic 5 billion cell Capsule, Sprinkle 1 cap PO DAILY RF: 0 Amino Acid Capsule 3 cap PO DAILY RF: 0 Theroplus 1 cap PO DAILY RF: 0 cetirizine 10 mg tablet 10 mg PO DAILY RF: 0 Discontinued ipratropium bromide 0.03 % spray,non-aerosol 2 spray INTNAS DAILY RF: 0 amoxicillin-pot clavulanate 875-125 mg tablet 1 tab PO Q12 RF: 0 Discharge Orders: Discharge Order (Routine); Ordered 03/09/21 Ordered By: Juancarlos Morfin Admission Data Admit Date/Time: 03/06/21 18:24 Attending Provider: Juancarlos Morfin Admit Provider: Inés Powers Primary Care Provider: Ruth Chong Other Providers: Inés Powers ; Renu Soler ; Veronica Whitley ; Jessica Steele ; Minoo Verduzco ; Connie Etienne ; Jose Malone ; Denver Ochoa ; Juan Jimenez ; Stephon Bergman ; Milvia Chaudhry ; Henny Esparza ; Cecelia Hassan ; Angela Martines ; Gabriella Houser Other Interventions: Discharge Summary Assessment (RN) Last Done: 03/09/21 16:42
[2021-03-09 18:16] LABS: Alternaria Class 0; Alternaria IgE <0.10 kU/L; Ash (White) Class 0; Ash (White) IgE <0.10 kU/L; Asperg Fumig Class 0; Asperg Fumig IgE <0.10 kU/L; Bermuda Grass Class 0; Bermuda Grass IgE <0.10 kU/L; Birch Class 0; Birch IgE <0.10 kU/L; Cat Dander Class 0; Cat Dander IgE <0.10 kU/L; Cladosporium IgE <0.10 kU/L; Cladosporium her Class 0; Cockroach Allergen Class 0; Cockroach IgE Ab <0.10 kU/L; Cottonwood Class 0; Cottonwood IgE <0.10 kU/L; D. farinae Class 0; D. farinae IgE <0.10 kU/L; D. pteronyssinus Class 0; D. pteronyssinus IgE <0.10 kU/L; Dog Dander Class 0; Dog Dander IgE <0.10 kU/L; Elm Class 0; Elm IgE <0.10 kU/L; Immunoglobulin IgE 8 kU/L (<OR=114); Maple (Box Elder) IgE <0.10 kU/L; Maple Class 0; Mountain Cedar Class 0; Mountain Cedar IgE <0.10 kU/L; Mouse Urine Protein Class 0; Mouse Urine Protein IgE <0.10 kU/L; Mugwort (W6) IgE <0.10 kU/L; Mugwort Class 0; Oak-White Class 0; Oak-White IgE <0.10 kU/L; Penic Notatum Class 0; Penic Notatum IgE <0.10 kU/L; Rough Pigweed Class 0; Rough Pigweed IgE <0.10 kU/L; Sheep Sorrel Class 0; Sheep Sorrel IgE <0.10 kU/L; Short Ragweed Class 0; Short Ragweed IgE <0.10 kU/L; Sycamore Class 0; Sycamore IgE <0.10 kU/L; Timothy Class 0; Timothy IgE <0.10 kU/L; Walnut Tree Class 0; Walnut Tree IgE <0.10 kU/L; White Mulberry Class 0; White Mulberry IgE <0.10 kU/L
[2021-03-09] MEDS ORDERED: ACETYLCYSTEINE 20% INHAL SOLN 4ML ***DISPENSED BY RESP. INH SCH (19:00)
== END 2021-03-09 16:43 | disposition home or self-care (01) | DRG 203 ==
LOC: ED 14:12 → SUATTDRO 18:24 → 2W 18:24